=== PATIENT | female | born 1960 | race Caucasian/White ===

== ENCOUNTER 2021-02-28 06:47 | Observation (INO) ==
[2021-02-27 15:14] LABS: Basophils % 0.4 % (0.0-0.8); Eosinophils # 0.2 10*3/uL (0.0-0.87); Eosinophils % 1.7 % (0.00-10.9); Hematocrit 42.1 VOL% (35.7-47.0); Hemoglobin 13.5 GM/DL (12.0-16.0); Immature Granulocytes % 0.4 %; Immature Granulocytes Absolute 0.04 #; Lymphocytes # 1.5 10*3/uL (1.4-4.0); Lymphocytes % 14.2 % (21.3-54.2); Mean Corpuscular HGB Conc 32.1 GM/DL (32-36); Mean Corpuscular Volume 96.3 FL (87-102); Mean Platelet Volume 11.7 FL (9.6-12.0); Monocytes % 4.7 % (1.7-12.7); Neutrophils % 78.6 % (38.7-73.9); Platelet Count 195 T/CUMM (130-400); Red Blood Count 4.37 MC/CUMM (3.8-5.5); Red Cell Distribution Width 13.1 % (9.3-17.3); White Blood Count 10.8 T/CUMM (4-12)
[2021-02-27 15:29] LABS: Albumin 4.1 G/DL (3.4-5.0); Bilirubin,Total 0.4 MG/DL (0.2-1.0); Calcium 9.4 MG/DL (8.5-10.1); Osmolality,Calculated 272.8 MOS/KG (273-304); Potassium 4.5 MMOL/L (3.5-5.1); Total Protein 7.5 G/DL (6.4-8.2)
[2021-02-28] MEDS ORDERED: cefTRIAXone 1,000 MG in SODIUM CHLORIDE 0.9% 100 ML IV ONE ×2 (07:00→08:00)
[2021-02-28] MEDS ORDERED: DIAZEPAM 5 MG TABLET PO ONE (07:13)
[2021-02-28] MEDS ORDERED: FAMOTIDINE 20 MG TABLET PO ONE (07:13)
[2021-02-28] MEDS ORDERED: LACTATED RINGERS 1,000 ML IV SCH (07:30)
[2021-02-28] MEDS ORDERED: SUGAMMADEX 200 MG/2 ML VIAL IV ONE (08:38)
[2021-02-28] MEDS ORDERED: fentaNYL 100 MCG/2 ML VIAL ONE ×2 (10:19→11:33)
[2021-02-28] MEDS ORDERED: MIDAZOLAM 2 MG/2 ML VIAL ONE (10:20)
[2021-02-28] MEDS ORDERED: ROCURONIUM 50 MG/5 ML VIAL IV ONE ×2 (11:00→11:13)
[2021-02-28] MEDS ORDERED: ONDANSETRON 4 MG/2 ML VIAL ONE (11:00)
[2021-02-28] MEDS ORDERED: SEVOFLURANE 1 UNIT/15 MINUTE INH ONE ×3 (11:00→11:25)
[2021-02-28] MEDS ORDERED: LIDOCAINE 2% 5 ML VIAL ONE (11:00)
[2021-02-28] MEDS ORDERED: propofoL 200 MG/20 ML VIAL IV ONE (11:00)
[2021-02-28] MEDS ORDERED: BELLADONNA/OPIUM 30 MG SUPP RECTAL ONE ×2 (11:22→11:48)
[2021-02-28] MEDS ORDERED: ACETAMINOPHEN INJ 1,000 MG/100 ML VIAL IV ONE (11:28)
[2021-02-28] MEDS ORDERED: LACTATED RINGERS 1,000 ML IV ONE (11:34)
[2021-02-28] MEDS ORDERED: PROMETHAZINE 25 MG/1 ML VIAL IM PRN (11:58)
[2021-02-28] MEDS ORDERED: LACTULOSE 20 GM/30 ML UDCUP PO PRN (11:58)
[2021-02-28] MEDS ORDERED: HYDROmorphone 2 MG/1 ML VIAL IV PRN (12:23)
[2021-02-28] MEDS: oxyCODONE/ACETAMINOPHEN 5-325 MG TABLET PO PRN ×3 (12:41→20:23)
[2021-02-28] MEDS ORDERED: MORPHINE 10 MG/1 ML VIAL IV PRN (12:51)
[2021-02-28 12:56] LABS: Basophils % 0.6 % (0.0-0.8); Eosinophils # 0.2 10*3/uL (0.0-0.87); Eosinophils % 3.1 % (0.00-10.9); Hemoglobin 11.9 GM/DL (12.0-16.0); Immature Granulocytes % 0.8 %; Immature Granulocytes Absolute 0.04 #; Lymphocytes # 1.2 10*3/uL (1.4-4.0); Lymphocytes % 22.8 % (21.3-54.2); Mean Corpuscular HGB Conc 33.1 GM/DL (32-36); Mean Platelet Volume 10.9 FL (9.6-12.0); Monocytes % 5.1 % (1.7-12.7); Neutrophils % 67.6 % (38.7-73.9); Platelet Count 141 T/CUMM (130-400); Red Blood Count 3.79 MC/CUMM (3.8-5.5); Red Cell Distribution Width 13.1 % (9.3-17.3); White Blood Count 5.1 T/CUMM (4-12)
[2021-02-28 13:14] LABS: Calcium 8.3 MG/DL (8.5-10.1); Osmolality,Calculated 274.7 MOS/KG (273-304); Potassium 4.4 MMOL/L (3.5-5.1)
[2021-02-28] MEDS: HYDROmorphone 2 MG/1 ML VIAL IV PRN ×2 (13:40→18:33)
[2021-02-28] MEDS: SODIUM CHLORIDE 0.9% 1,000 ML IV SCH ×2 (13:47→22:15)
[2021-02-28] MEDS ORDERED: BELLADONNA/OPIUM 30 MG SUPP RECTAL PRN (14:25)
[2021-02-28] MEDS: cefTRIAXone 1,000 MG in SODIUM CHLORIDE 0.9% 100 ML IV SCH (14:39)
[2021-02-28] MEDS: PREGABALIN 75 MG CAPSULE PO SCH ×2 (14:39→20:24)
[2021-02-28] MEDS: ACETAMINOPHEN 325 MG TABLET PO SCH ×2 (14:40→18:27)
[2021-02-28] MEDS: OXYBUTYNIN 5 MG TABLET PO SCH ×2 (14:40→20:24)
[2021-02-28 14:43] LABS: PT Patient Result 10.6 SECS (9.8-11.9)
[2021-02-28] MEDS: TAMSULOSIN 0.4 MG CAPSULE PO SCH (20:24)
[2021-02-28] MEDS: FLUTICASONE 50 MCG NASAL SPRAY 16 GM BOTTLE BOTH NARES SCH (20:24)
[2021-02-28] MEDS: buPROPion SR 150 MG TABLET PO SCH (20:24)
[2021-03-01] MEDS: ACETAMINOPHEN 325 MG TABLET PO SCH ×5 (00:23→23:02)
[2021-03-01] MEDS: SODIUM CHLORIDE 0.9% 1,000 ML IV SCH ×3 (00:23→17:04)
[2021-03-01] MEDS: HYDROmorphone 2 MG/1 ML VIAL IV PRN ×4 (01:50→23:00)
[2021-03-01 05:32] LABS: Basophils % 0.5 % (0.0-0.8); Eosinophils # 0.2 10*3/uL (0.0-0.87); Eosinophils % 3.2 % (0.00-10.9); Hematocrit 33.3 VOL% (35.7-47.0); Hemoglobin 10.8 GM/DL (12.0-16.0); Immature Granulocytes % 0.2 %; Immature Granulocytes Absolute 0.01 #; Lymphocytes # 1.5 10*3/uL (1.4-4.0); Lymphocytes % 25.6 % (21.3-54.2); Mean Corpuscular HGB Conc 32.4 GM/DL (32-36); Mean Corpuscular Volume 97.4 FL (87-102); Mean Platelet Volume 11.2 FL (9.6-12.0); Monocytes % 5.5 % (1.7-12.7); Platelet Count 134 T/CUMM (130-400); Red Blood Count 3.42 MC/CUMM (3.8-5.5); Red Cell Distribution Width 13.2 % (9.3-17.3); White Blood Count 5.9 T/CUMM (4-12)
[2021-03-01 05:50] LABS: Calcium 7.9 MG/DL (8.5-10.1); Osmolality,Calculated 275.5 MOS/KG (273-304); Potassium 4.3 MMOL/L (3.5-5.1)
[2021-03-01] MEDS: FLUTICASONE 50 MCG NASAL SPRAY 16 GM BOTTLE BOTH NARES SCH ×2 (08:16→21:13)
[2021-03-01] MEDS ORDERED: DIAZEPAM 5 MG TABLET PO ONE (09:30)
[2021-03-01] MEDS ORDERED: fentaNYL 100 MCG/2 ML VIAL IV ONE (09:30)
[2021-03-01] MEDS ORDERED: MIDAZOLAM 2 MG/2 ML VIAL IV ONE (09:30)
[2021-03-01] MEDS: TAMSULOSIN 0.4 MG CAPSULE PO SCH ×2 (09:41→21:27)
[2021-03-01] MEDS: OXYBUTYNIN 5 MG TABLET PO SCH ×3 (09:41→21:27)
[2021-03-01] MEDS: MULTIVITAMIN (CENTRUM) TABLET PO SCH (09:41)
[2021-03-01] MEDS: PREGABALIN 75 MG CAPSULE PO SCH ×3 (09:42→21:10)
[2021-03-01] MEDS: buPROPion SR 150 MG TABLET PO SCH ×2 (09:42→21:10)
[2021-03-01] MEDS: ONDANSETRON 4 MG/2 ML VIAL IV PRN (10:03)
[2021-03-01] MEDS: cefTRIAXone 1,000 MG in SODIUM CHLORIDE 0.9% 100 ML IV SCH (10:04)
[2021-03-01] MEDS: oxyCODONE/ACETAMINOPHEN 5-325 MG TABLET PO PRN ×2 (17:06→21:10)
[2021-03-02] MEDS: SODIUM CHLORIDE 0.9% 1,000 ML IV SCH ×2 (01:32→09:40)
[2021-03-02] MEDS: HYDROmorphone 2 MG/1 ML VIAL IV PRN (03:22)
[2021-03-02 05:20] LABS: Basophils % 0.3 % (0.0-0.8); Eosinophils # 0.2 10*3/uL (0.0-0.87); Eosinophils % 2.7 % (0.00-10.9); Hematocrit 33.5 VOL% (35.7-47.0); Hemoglobin 10.7 GM/DL (12.0-16.0); Immature Granulocytes % 0.2 %; Immature Granulocytes Absolute 0.01 #; Lymphocytes # 1.3 10*3/uL (1.4-4.0); Lymphocytes % 22.4 % (21.3-54.2); Mean Corpuscular HGB Conc 31.9 GM/DL (32-36); Mean Corpuscular Volume 98.2 FL (87-102); Monocytes % 6.3 % (1.7-12.7); Neutrophils % 68.1 % (38.7-73.9); Platelet Count 138 T/CUMM (130-400); Red Blood Count 3.41 MC/CUMM (3.8-5.5); Red Cell Distribution Width 13.2 % (9.3-17.3); White Blood Count 5.9 T/CUMM (4-12)
[2021-03-02 05:32] LABS: Calcium 7.9 MG/DL (8.5-10.1); Osmolality,Calculated 277.3 MOS/KG (273-304); Potassium 3.9 MMOL/L (3.5-5.1)
[2021-03-02 05:40] LABS: Hypochromasia 1+; Microcytosis 1+; Platelet Estimate Adequate
[2021-03-02] MEDS: ACETAMINOPHEN 325 MG TABLET PO SCH (06:04)
[2021-03-02 07:59] VITALS: BP 122/69
[2021-03-02] MEDS: PREGABALIN 75 MG CAPSULE PO SCH (08:24)
[2021-03-02] MEDS: TAMSULOSIN 0.4 MG CAPSULE PO SCH (08:24)
[2021-03-02] MEDS: OXYBUTYNIN 5 MG TABLET PO SCH (08:24)
[2021-03-02] MEDS: oxyCODONE/ACETAMINOPHEN 5-325 MG TABLET PO PRN (08:24)
[2021-03-02] MEDS: buPROPion SR 150 MG TABLET PO SCH (08:25)
[2021-03-02] MEDS: MULTIVITAMIN (CENTRUM) TABLET PO SCH (08:25)
[2021-03-02] MEDS: FLUTICASONE 50 MCG NASAL SPRAY 16 GM BOTTLE BOTH NARES SCH (08:25)
[2021-03-02] MEDS: cefTRIAXone 1,000 MG in SODIUM CHLORIDE 0.9% 100 ML IV SCH (08:25)
[2021-03-02] MEDS: ONDANSETRON 4 MG/2 ML VIAL IV PRN (08:49)
== END 2021-03-02 11:05 | disposition home or self-care (01) ==
LOC: N.5E 06:47 → N.OR 06:47 → N.SDSINP 06:51 → N.5E 13:20
PROVIDERS: ADMIT Surgery; ATTEND Surgery

== ENCOUNTER 2022-08-16 13:33 | Inpatient (IN) ==
[2022-08-16] MEDS ORDERED: SODIUM CHLORIDE 0.9% 1,000 ML IV STA (13:56)
[2022-08-16] MEDS ORDERED: SODIUM CHLORIDE 0.9% 1,000 ML IV SCH (14:30)
[2022-08-16 14:43] LABS: Basophils % 0.1 % (0.0-0.8); Hematocrit 35.5 VOL% (35.7-47.0); Hemoglobin 11.2 GM/DL (12.0-16.0); Immature Granulocytes % 0.6 %; Immature Granulocytes Absolute 0.06 #; Lymphocytes # 0.6 10*3/uL (1.4-4.0); Lymphocytes % 5.2 % (21.3-54.2); Mean Corpuscular HGB Conc 31.5 GM/DL (32-36); Mean Platelet Volume 10.6 FL (9.6-12.0); Monocytes # 0.3 10*3/uL (0.11-0.8); Monocytes % 2.4 % (1.7-12.7); Neutrophils % 91.7 % (38.7-73.9); Platelet Count 194 T/CUMM (130-400); Red Cell Distribution Width 17.1 % (9.3-17.3); White Blood Count 10.8 T/CUMM (4-12)
[2022-08-16 15:05] LABS: Band Neutrophils 4 % (0-10); Lymphocytes 2 % (20-55); Total Cells Counted 100
[2022-08-16 15:06] LABS: Albumin 2.3 G/DL (3.4-5.0); Bilirubin,Total 0.5 MG/DL (0.20-1.00); Calcium 8.7 MG/DL (8.5-10.1); Osmolality,Calculated 276.7 MOS/KG (273-304); Potassium 3.8 MMOL/L (3.5-5.1); Total Protein 6.1 G/DL (6.4-8.2)
[2022-08-16 15:12] LABS: Platelet Estimate Adequate
[2022-08-16 15:13] LABS: Polychromasia 1+
[2022-08-16] MEDS ORDERED: ACETAMINOPHEN 325 MG TABLET PO PRN (17:00)
[2022-08-16] MEDS ORDERED: ONDANSETRON 4 MG/2 ML VIAL IV PRN (17:00)
[2022-08-16] MEDS ORDERED: HydrOXYzine PAMOATE 25 MG CAPSULE PO PRN (17:05)
[2022-08-16 17:46] LABS: Bilirubin,Urine Negative (Negative); Blood, Urine Trace mg/dL (Negative); Glucose,Urine (UA) Negative (Negative); Ketones,Urine Trace mg/dL (Negative); Nitrite,Urine Positive (Negative); Protein,Urine 30 mg/dL (Negative); Urine Appearance Cloudy (Clear); Urine Color Yellow (Yellow); Urine Specific Gravity 1.025 (1.001-1.035); Urine Urobilinogen 0.2 eU/dL (<2.0)
[2022-08-16 17:49] LABS: Bacteria,Urine Many /HPF (Few); Hyaline Casts,Urine 2 /LPF (0-3); Mucus,Urine Few /LPF (Occasional); RBC,Urine 2 /HPF (0-4)
[2022-08-16] MEDS: CEFEPIME 1,000 MG in SODIUM CHLORIDE 0.9% 100 ML IV SCH (18:23)
[2022-08-16 18:40] LABS: Thyroid Stimulating Hormone 2.68 uIU/ml (0.358-3.74)
[2022-08-16] MEDS: LACTATED RINGERS 1,000 ML IV SCH (19:06)
[2022-08-17] MEDS: VANCOMYCIN 125 MG CAPSULE PO SCH ×4 (00:35→19:26)
[2022-08-17] MEDS: ENOXAPARIN 40 MG/0.4 ML SYRINGE SUBCUT SCH ×2 (00:35→20:29)
[2022-08-17] MEDS: rOPINIRole 1 MG TABLET PO SCH ×3 (00:35→20:29)
[2022-08-17] MEDS: PREGABALIN 100 MG CAPSULE PO SCH ×4 (00:35→20:30)
[2022-08-17] MEDS: CEFEPIME 1,000 MG in SODIUM CHLORIDE 0.9% 100 ML IV SCH ×3 (02:50→19:23)
[2022-08-17 05:44] LABS: Calcium 8.3 MG/DL (8.5-10.1); Osmolality,Calculated 277.4 MOS/KG (273-304); Potassium 3.5 MMOL/L (3.5-5.1)
[2022-08-17 06:11] LABS: Basophils % 0.2 % (0.0-0.8); Eosinophils % 0.3 % (0.00-10.9); Hematocrit 25.6 VOL% (35.7-47.0); Immature Granulocytes % 0.8 %; Immature Granulocytes Absolute 0.09 #; Lymphocytes # 0.9 10*3/uL (1.4-4.0); Lymphocytes % 7.7 % (21.3-54.2); Mean Corpuscular HGB Conc 31.3 GM/DL (32-36); Mean Corpuscular Volume 94.1 FL (87-102); Mean Platelet Volume 10.7 FL (9.6-12.0); Monocytes # 0.4 10*3/uL (0.11-0.8); Monocytes % 3.2 % (1.7-12.7); Neutrophils % 87.8 % (38.7-73.9); Platelet Count 216 T/CUMM (130-400); Red Cell Distribution Width 16.9 % (9.3-17.3); White Blood Count 11.5 T/CUMM (4-12)
[2022-08-17] MEDS: LACTATED RINGERS 1,000 ML IV SCH ×5 (06:17→22:51)
[2022-08-17 06:22] LABS: Red Blood Count 2.72 MC/CUMM (3.8-5.5)
[2022-08-17 06:42] LABS: Anisocytosis 1+; Band Neutrophils 17 % (0-10); Eosinophils 1 % (0-10); Lymphocytes 9 % (20-55); Macrocytosis 1+; Platelet Estimate Normal; Total Cells Counted 100
[2022-08-17 06:43] LABS: Tear Drop Cells Few
[2022-08-17] MEDS ORDERED: PNEUMOCOCCAL VACCINE (13 VALENT) 0.5 ML SYRINGE IM ONE (09:00)
[2022-08-17] MEDS: FLUTICASONE 50 MCG NASAL SPRAY 16 GM BOTTLE BOTH NARES SCH ×2 (09:00→20:29)
[2022-08-17] MEDS: PANTOPRAZOLE 40 MG TABLET PO SCH (10:41)
[2022-08-17] MEDS: BACILLUS COAGULANS CAPLET PO SCH ×2 (14:31→20:29)
[2022-08-17] MEDS: DICLOFENAC 1% GEL 100 GM TUBE TOP SCH ×2 (14:32→20:30)
[2022-08-18] MEDS: LACTATED RINGERS 1,000 ML IV SCH ×2 (01:04→09:26)
[2022-08-18] MEDS: CEFEPIME 1,000 MG in SODIUM CHLORIDE 0.9% 100 ML IV SCH ×2 (01:04→09:24)
[2022-08-18] MEDS: VANCOMYCIN 125 MG CAPSULE PO SCH ×4 (01:04→17:44)
[2022-08-18 04:57] LABS: Basophils % 0.3 % (0.0-0.8); Eosinophils # 0.1 10*3/uL (0.0-0.87); Eosinophils % 2.2 % (0.00-10.9); Hematocrit 24.2 VOL% (35.7-47.0); Hemoglobin 7.6 GM/DL (12.0-16.0); Immature Granulocytes % 0.8 %; Immature Granulocytes Absolute 0.05 #; Lymphocytes # 0.6 10*3/uL (1.4-4.0); Mean Corpuscular HGB Conc 31.4 GM/DL (32-36); Mean Corpuscular Volume 92.4 FL (87-102); Mean Platelet Volume 10.2 FL (9.6-12.0); Monocytes # 0.4 10*3/uL (0.11-0.8); Monocytes % 5.6 % (1.7-12.7); Neutrophils % 81.1 % (38.7-73.9); Platelet Count 203 T/CUMM (130-400); Red Blood Count 2.62 MC/CUMM (3.8-5.5); Red Cell Distribution Width 16.3 % (9.3-17.3); White Blood Count 6.4 T/CUMM (4-12)
[2022-08-18 05:27] LABS: Calcium 8.4 MG/DL (8.5-10.1); Osmolality,Calculated 277.3 MOS/KG (273-304); Potassium 3.2 MMOL/L (3.5-5.1)
[2022-08-18] MEDS: rOPINIRole 1 MG TABLET PO SCH (08:39)
[2022-08-18] MEDS: PREGABALIN 100 MG CAPSULE PO SCH ×2 (08:40→14:42)
[2022-08-18] MEDS: BACILLUS COAGULANS CAPLET PO SCH (08:40)
[2022-08-18] MEDS: PANTOPRAZOLE 40 MG TABLET PO SCH (08:40)
[2022-08-18] MEDS: FLUTICASONE 50 MCG NASAL SPRAY 16 GM BOTTLE BOTH NARES SCH (08:40)
[2022-08-18] MEDS: DICLOFENAC 1% GEL 100 GM TUBE TOP SCH ×2 (09:27→14:42)
[2022-08-18] MEDS ORDERED: POTASSIUM CHLORIDE 20 MEQ TABLET PO PRN (12:39)
[2022-08-18 13:59] VITALS: BP 128/80
[2022-08-18] MEDS ORDERED: POTASSIUM CHLORIDE 20 MEQ TABLET PO ONE (16:13)
== END 2022-08-18 18:06 | disposition home or self-care (01) | DRG 372 ==
LOC: N.ED 13:33 → N.EDINP 16:56 → SUATTDRO 16:56 → N.TELES 19:19 → N.TELEN 08-17 07:47
PROVIDERS: ADMIT Internal Medicine; ATTEND Family Medicine